=== PATIENT | male | born 1990 | race Caucasian/White ===

== ENCOUNTER 2017-02-28 07:15 | Emergency (ER) ==
[2017-02-28 07:32] VITALS: BP 164/94; TEMP 99; BMI 28.8
[2017-02-28] MEDS ORDERED: CARDENE-NACL 20 MG/200 ML SOLN 200 ML IV ONE (08:00)
[2017-02-28] MEDS ORDERED: CARDENE-NACL 20 MG/200 ML SOLN 20 MG in PREMIX 200ML 0.86% SODIUM CHLORIDE 1 BAG IV SCH (08:00)
[2017-02-28 08:10] LABS: BASOPHILS % (AUTO) 0.4 % (0.0-3.0); EOSINOPHILS % (AUTO) 0.2 % (0.0-7.0); HEMATOCRIT 46.7 % (42.0-52.0); IMMATURE GRANULOCYTE % (AUTO) 0.3 % (0.0-5.0); LYMPHOCYTES # (AUTO) 1.8 K/uL (0.60-3.4); LYMPHOCYTES % (AUTO) 17.3 (10.0-50.0); MEAN CORPUSCULAR HGB CONC 36.4 (31.8-35.4); MEAN CORPUSCULAR VOLUME 85.1 fl (80.0-94.0); MONOCYTES % (AUTO) 10.3 (0-10); NEUTROPHILS # (AUTO) 7.2 K/ul (2.0-6.9); NEUTROPHILS % (AUTO) 71.5; PLATELET COUNT 265 10^3/uL (140-440); RED BLOOD COUNT 5.49 10^6/ul (4.70-6.10); WHITE BLOOD COUNT 10.11 K/ul (4.2-10.2)
--- NOTE | 2017-02-28 08:29 | CT ---
EXAM: CT Abdomen without contrast. CT Pelvis without contrast. HISTORY: Abdominal pain. Drug overdose. COMPARISON: 03/29/2016. TECHNIQUE: Multiple axial images of the abdomen and pelvis were obtained without intravenous contra st. Images were reformatted in the coronal plane. FINDINGS: Please note that evaluation of the abdominal and pelvic structures is limited due to lack of intravenous contrast. The lung bases are clear. No acute osseous abnormality identified. The liver, gallbladder, pancreas, spleen, adrenal glands, and kidneys demonstrate normal contour. N o calcified renal stones or hydronephrosis identified. The bowel is normal in course and caliber without evidence for obstruction or inflammatory process. The appendix is normal. Urinary bladder is unremarkable. No free fluid or free air identified IMPRESSION: No acute abnormality in the abdomen or pelvis.
--- NOTE | 2017-02-28 08:31 | CT ---
EXAM: CT chest without contrast. HISTORY: Chest pain. Drug overdose. COMPARISON: 08/07/2014. TECHNIQUE: Multiple axial images of the chest were obtained without intravenous contrast. Images w ere reformatted in the sagittal and coronal planes. FINDINGS: Evaluation for lymphadenopathy is limited due to lack of intravenous contrast. Residual thymic tissue is present. Heart size is normal. There is no pericardial effusion. No consolidation, pleural effusion or pneumothorax identified. Limited images of the upper abdomen are unremarkable. The osseous structures are within normal limi ts for the patient's age. IMPRESSION: No acute abnormality of the chest.
[2017-02-28 08:50] LABS: PARTIAL THROMBOPLASTIN TIME 22.5 SEC (23.9-40.0); PROTHROMBIN TIME 10.9 SEC (9.3-11.0)
[2017-02-28 09:07] LABS: ALBUMIN 4.7 g/dL (3.4-5.0); ALBUMIN/GLOBULIN RATIO 1.38; ANION GAP 15.5; BILIRUBIN,TOTAL 1.73 mg/dL (0.00-1.20); BUN/CREATININE RATIO 14.16; CALCIUM 9.6 mg/dL (8.2-10.2); CREATININE 1.2 mg/dL (0.60-1.10); POTASSIUM 3.5 mmol/L (3.5-5.1); TOTAL PROTEIN 8.1 g/dL (6.4-8.2); TROPONIN I 0.01 ng/ml (0.0000-0.4000)
[2017-02-28 09:12] LABS: CREATINE KINASE MB 19.5 ng/ml (0.0-3.6)
--- NOTE | 2017-02-28 09:28 | ED.PDOC ---
General ED Provider: Dr. VALENTE CRUZ Chief Complaint: Chest Pain Stated Complaint: chest pain Time Seen by Physician: 07:30 (ptesent selin . pt admitted to meth abuse for the past 3 day) Mode of Arrival: Walk-In Information Source: Patient Exam Limitations: No limitations Nursing and Triage Documentation Reviewed and Agree: Yes Cardiovascular Complaint Exam - Chest Pain Complaint/Exam Onset: Sudden Duration: x 2 hours Symptoms Are: Still present Timing: Intermittent Length of Chest Pain Episodes: 20 min Initial Severity: Moderate Current Severity: Mild Location: Reports: Midsternal Pain Radiates: Reports: None Character: Reports: Tightness Aggravating: Reports: None Alleviating: Reports: Rest, Spontaneous resolution Associated Signs and Symptoms: Reports: Nausea, Cough, Abdominal pain. Denies: Diaphoresis, Vomiting, Fever, Palpitations, Hemoptysis, Back pain, Dizziness, Short of air, Calf pain, Calf swelling Related Surgical History: Reports: None History of Healthcare-Acquired Pneumonia: Reports: No AMI/ACS Risk Factors: Reports: Smoking TAD Risk Factors: Reports: Smoking Pulmonary Embolism Risk Factors: Reports: None Prior Care for this Complaint: No Recent Stress Test: No Recent Echo/LV Function: No JVD Present: No Subcutaneous Emphysema Present: No Diminshed Breath Sounds: No Reproducible Chest Wall Pain: No Bilateral Pulses Present: No If Risk Factors for AMI/ACS Consider: EKG, Cardiac Enzymes Review of Systems - Review Of Systems Constitutional: Reports: Malaise Eyes: Reports: No symptoms Ears, Nose, Mouth, Throat: Reports: No symptoms Respiratory: Reports: Cough Cardiac: Reports: Chest pain GI: Reports: Abdominal pain : Reports: No symptoms Musculoskeletal: Reports: No symptoms Skin: Reports: No symptoms Neurological: Reports: No symptoms Endocrine: Reports: No symptoms Hematologic/Lymphatic: Reports: No symptoms All Other Systems: Reviewed and Negative Past Medical History - Past Medical History Endocrine: Reports: None Cardiovascular: Reports: None Respiratory: Reports: None Hematological: Reports: None Gastrointestinal: Reports: None Genitourinary: Reports: None Neuro/Psych: Reports: Other (history of head injury) Musculoskeletal: Reports: None Cancer: Reports: None - Surgical History General Surgical History: Reports: Unknown (atietn uncooperaticve with history uncooperative with physical eventually allows exam) - Family History Family History: Reports: Unknown - Social History Smoking Status: Current some day smoker Hx Substance Use: Yes Alcohol Screening: None Physical Exam - Physical Exam Appearance: Ill-appearing Ill-appearing: Mild Pain Distress: Mild Eyes: LUIS DANIEL, EOMI, Conjunctiva clear ENT: Ears normal, Nose normal, Oropharynx normal Respiratory: Airway patent, Breath sounds clear, Breath sounds equal, Respirations nonlabored Cardiovascular: RRR, Pulses normal, No rub, No murmur GI/: Soft, Nontender, No masses, Bowel sounds normal, No Organomegaly Musculoskeletal: Normal strength, ROM intact, No edema, No calf tenderness Skin: Warm, Dry, Normal color Neurological: Sensation intact, Motor intact, Reflexes intact, Cranial nerves intact, Alert, Oriented Psychiatric: Affect appropriate, Mood appropriate Interpretation - [place] Rate: Normal Rhythm: Sinus Ectopy: None - EKG Interpretation Rate: Normal Rhythm: Sinus Ectopy: None [place]: NL ST Segment: Normal Physician Notification - Case Discussed Physician Notified: natalee Time of Notification: 09:49 (accepted pt for transfer ) Critical Care Note - Critical Care Note Total Time (mins): 0 Course - Course Hematology/Chemistry: 02/28/17 08:05 02/28/17 08:05 Orders, Labs, Meds: Lab Review 02/28/17 08:05 WBC 10.11 RBC 5.49 Hgb 17.0 Hct 46.7 MCV 85.1 MCH 31.0 MCHC 36.4 H RDW Coeff of Gage 12.1 Plt Count 265 Immature Gran % (Auto) 0.3 Neut % (Auto) 71.5 Lymph % (Auto) 17.3 [place] % (Auto) 10.3 H Eos % (Auto) 0.2 Baso % (Auto) 0.4 Immature Gran # (Auto) 0.0 Neut # 7.2 H Lymph # 1.8 [place] # 1.0 Eos # 0.0 Baso # 0.0 PT 10.9 INR 1.06 APTT 22.5 L Sodium 139 Potassium 3.5 Chloride 104 Carbon Dioxide 23 Anion Gap 15.5 BUN 17 Creatinine 1.20 H Estimated GFR (MDRD) 73.00 BUN/Creatinine Ratio 14.16 Glucose 101 H Calcium 9.6 Total Bilirubin 1.73 H AST 57 H ALT 44 Alkaline Phosphatase 81 Total Creatine Kinase 1865 CK-MB (CK-2) 19.5 H* CK-MB (CK-2) % 1.73898 Troponin I 0.0100 Total Protein 8.1 Albumin 4.7 Globulin 3.4 Albumin/Globulin Ratio 1.38 Orders Category Date Time Status EKG-(ED ONLY) Stat CARDIO 02/28/17 08:27 Completed EKG-(ED ONLY) Stat CARDIO 02/28/17 09:42 Completed TRANSFER TO OUTSIDE FACILITY .TO [facility] ( CARE 02/28/17 09:31 Active NOMAN DUBOSE) WRITE TRANSFER/SBAR NOTE ONCE CARE 02/28/17 09:31 Active DISCHARGE ASSESSMENT ONCE DISCHARGE 02/28/17 09:31 Active WRITE DISCHARGE NOTE ONCE DISCHARGE 02/28/17 09:31 Active ED IV/MEDIPORT/POWERPORT .ONCE EMERGENCY 02/28/17 07:53 Active CBC W/ AUTO DIFF Stat LAB 02/28/17 08:05 Completed COMPREHENSIVE METABOLIC PANEL Stat LAB 02/28/17 08:05 Completed CREATINE KINASE Stat LAB 02/28/17 08:05 Completed DRUG SCREEN (RAPID FOR ED) [DRUG SCREEN, URINE, RAPID] LAB 02/28/17 07:54 Uncollected Stat PARTIAL THROMBOPLASTIN TIME Stat LAB 02/28/17 08:05 Completed PT WITH INR Stat LAB 02/28/17 08:05 Completed TROPONIN I Stat LAB 02/28/17 08:05 Completed 0.9 % Sodium Chloride [Premix 200Ml 0.86% Sodium MEDS 02/28/17 08:00 Active Chloride] 1 bag Nicardipine in NaCl, Iso-Osm [Cardene-NaCl 20 mg/200 ml Soln] 20 mg IV 5 mg/hr 0.9 % Sodium Chloride [Saline Flush] MEDS 02/28/17 07:53 Active 1 syr IVF PRN PRN Nicardipine in NaCl, Iso-Osm [Cardene-NaCl 20 mg/200 ml MEDS 02/28/17 08:00 Discontinued Soln] 200 ml IV .STK-MED CT ABDOMEN/PELVIS WO CONTRAST Stat RADS 02/28/17 07:[address] CHEST W/O CONTRAST Stat RADS 02/28/17 07:53 Completed Medications Generic Name Dose Route Start Last Admin Trade Name Freq PRN Reason Stop Dose Admin NICARDIPINE IN NACL, ISO-OSM 200 mls @ 50 mls/hr 02/28/17 08:00 02/28/17 08: 20 20 mg/ Sodium Chloride IV 5 mg/hr .Q4H LEOPOLDO 50 mls/hr Protocol Administration 5 MG/HR Sodium Chloride 1 syr 02/28/17 07:53 Saline Flush IVF PRN PRN To flush IV Vital Signs: Temp Pulse Resp BP Pulse Ox 02/28/17 07:28 99.0 F 90 16 164/94 H 99 JACKSON Risk Score JACKSON Risk Score: Risk Score Odds of by 30D 0 0.1 (0.1-0.2) 1 0.3 (0.2-0.3) 2 0.4 (0.3-0.5) 3 0.7 (0.6-0.9) 4 1.2 (1.0-1.5) 5 2.2 (1.9-2.6) 6 3.0 (2.5-3.6) 7 4.8 (3.8-6.1) Departure - Departure Time of Disposition: 09:30 Disposition: TSF SHORT-TRM HOSP Discharge Problem: Chest pain Instructions: Chest Pain (ED), Angina (ED) Condition: Good Pt referred to PMD for follow-up: Yes Allergies/Adverse Reactions: Allergies No Known Allergies Allergy (Verified 02/28/17 07:32) Home Medications: Ambulatory Orders 1 [No Reported Medications] 04/10/15 Disposition Discussed With: Patient
== END 2017-02-28 11:02 | disposition short-term general hospital (02) ==
LOC: ED 07:15
DX: R07.9 Chest pain, unspecified (principal); F15.10 Other stimulant abuse, uncomplicated; R11.0 Nausea; R05 Cough; R10.9 Unspecified abdominal pain; F17.210 Nicotine dependence, cigarettes, uncomplicated
CPT/HCPCS: 36415; 80053; 82550; 82553; 84484; 85025; 85610; 85730; 93005; 93010; 96365; 99285

== ENCOUNTER 2017-02-28 11:00 | Outpatient (CLI) ==
[2017-03-01 05:30] VITALS: BMI 28.8
== END 2017-02-28 11:01 ==
LOC: AMBL 11:00
PROVIDERS: ATTEND Internal Medicine
DX: R07.9 Chest pain, unspecified (principal); F15.10 Other stimulant abuse, uncomplicated

== ENCOUNTER 2017-03-01 05:18 | Outpatient (CLI) ==
[2017-03-01 05:30] VITALS: BMI 28.8
== END 2017-03-01 05:19 ==
LOC: AMBL 05:18
PROVIDERS: ATTEND Family Medicine
DX: R44.3 Hallucinations, unspecified (principal); F10.10 Alcohol abuse, uncomplicated; F15.10 Other stimulant abuse, uncomplicated

== ENCOUNTER 2017-03-01 05:30 | Emergency (ER) ==
[2017-03-01 05:30] VITALS: BMI 28.8
[2017-03-01] MEDS ORDERED: SODIUM CHLORIDE 1,000 ML IV STA (05:39)
[2017-03-01 05:48] VITALS: BP 130/77; TEMP 98.8
--- NOTE | 2017-03-01 05:58 | ED.PDOC ---
General ED Provider: Dr. ARLETTE GARSIA-ER Chief Complaint: Alcohol Intoxication Stated Complaint: devora been drinking Time Seen by Physician: 05:35 Mode of Arrival: Walk-In Information Source: Patient, EMT, Police Exam Limitations: No limitations Nursing and Triage Documentation Reviewed and Agree: Yes Neurological Complaint Exam - Altered Mental Status Complaint/Exam Current Mental Status: Confusion Onset: Gradual Symptoms Are: Still present Timing: Intermittent Initial Severity: Mild Current Severity: Mild Eye Deviation Present: No Character: Denies: Confusion, Agitation, Responsiveness, Lethargy Aggravating: Reports: Ingestion Alleviating: Reports: None Associated Signs and Symptoms: Denies: Dizziness, Weakness, Headache, Fever, Illness, Nuchal rigidity, Seizure, Nausea, Vomiting, Recently depressed, Trauma Related History: Reports: Similar episode Cardiac Risk Factors: Reports: None CVA Risk Factors: Reports: None Related Surgical History: Reports: None Carotid Bruit Present: No Glascow Coma Scale (see protocol): 15 Nystagmus Present: No Gag Reflex Present: Yes Meningeal Signs Positive: No Focal Weakness: Present: None Focal Sensory Loss: Present: None Gait: Normal [id number]: Normal Findings Romberg Test Positive: No Babinski Sign: Negative Right, Negative Left Heel to Toe Normal: Yes Signs of Injury: Present: Normal findings Thrombolytics Considered: No Differential Diagnoses: Intoxication, Metabolic Disorder, Other Review of Systems - Review Of Systems Constitutional: Reports: No symptoms Eyes: Reports: No symptoms Ears, Nose, Mouth, Throat: Reports: No symptoms Respiratory: Reports: No symptoms Cardiac: Reports: No symptoms GI: Reports: No symptoms : Reports: No symptoms Musculoskeletal: Reports: No symptoms Skin: Reports: No symptoms Neurological: Reports: Cognitive dysfunction Endocrine: Reports: No symptoms Hematologic/Lymphatic: Reports: No symptoms All Other Systems: Reviewed and Negative Past Medical History - Past Medical History Endocrine: Reports: None Cardiovascular: Reports: None Respiratory: Reports: None Hematological: Reports: None Gastrointestinal: Reports: None Genitourinary: Reports: None Neuro/Psych: Reports: Other (history of head injury) Musculoskeletal: Reports: None Cancer: Reports: None - Surgical History General Surgical History: Reports: Unknown (atietn uncooperaticve with history uncooperative with physical eventually allows exam) - Family History Family History: Reports: Unknown - Social History Smoking Status: Current some day smoker Hx Substance Use: Yes (meth) Alcohol Screening: Heavy Lives: With family - Immunizations Tetanus Shot up to Date: No Physical Exam - Physical Exam Appearance: Well-appearing, No pain distress, Well-nourished Eyes: LUIS DANIEL, EOMI, Conjunctiva clear ENT: Ears normal, Nose normal, Oropharynx normal Neck: Supple Respiratory: Airway patent, Breath sounds clear, Breath sounds equal, Respirations nonlabored Cardiovascular: RRR GI/: Soft, Nontender, No masses, Bowel sounds normal, No Organomegaly Musculoskeletal: Normal strength, ROM intact, No edema, No calf tenderness Skin: Warm, Dry, Normal color Neurological: Disoriented Psychiatric: Affect appropriate, Mood appropriate Interpretation - Radiology Interpretation Radiology Interpretation By: Radiologist Radiology Results: Negative Exam Interpreted: CT Scan Re-Evaluation - Re-Evaluation Time of Re-Evaluation: 07:00 Status: Improved (he is now alert and oriented x 3--he is refusing labs and wanting to leave ama) Vital Signs Stable: Yes Pain Level: 0 Appearance: NAD Lungs: Clear Skin: Warm and Dry Neuro: Alert and Oriented X3 CV: RRR Physician Notification - Case Discussed Physician Notified: dr crawley Time of Notification: 07:00 Critical Care Note - Critical Care Note Total Time (mins): 0 Course - Course Hematology/Chemistry: 03/01/17 06:25 Orders, Labs, Meds: Lab Review 03/01/17 03/01/17 05:38 06:25 WBC 11.84 H RBC 5.62 Hgb 17.2 Hct 49.2 MCV 87.5 MCH 30.6 MCHC 35.0 RDW Coeff of Gage 12.1 Plt Count 265 Immature Gran % (Auto) 0.4 Neut % (Auto) 80.9 Lymph % (Auto) 10.1 [place] % (Auto) 8.2 Eos % (Auto) 0.1 Baso % (Auto) 0.3 Immature Gran # (Auto) 0.1 Neut # 9.6 H Lymph # 1.2 [place] # 1.0 Eos # 0.0 Baso # 0.0 Puncture Site Lb O2 Saturation 95.0 ABG pH 7.376 ABG pCO2 34.3 L ABG pO2 77.0 L ABG HCO3 20.1 L ABG Total CO2 21 L ABG Base Excess -5 L Ben Test + FiO2 % 21.0 Orders Category Date Time Status ABG DRAW REQUEST Stat CARDIO 03/01/17 05:38 Completed EKG-(ED ONLY) Stat CARDIO 03/01/17 05:38 Completed Building Maintenance Superintendent [ED [employer] LEADER APPLIED] .ONCE EMERGENCY 03/01/17 05:39 Active ED IV/MEDIPORT/POWERPORT .ONCE EMERGENCY 03/01/17 05:39 Active ABG Stat LAB 03/01/17 05:38 Completed ACETAMINOPHEN Stat LAB 03/01/17 05:38 Ordered BLOOD ALCOHOL Stat LAB 03/01/17 05:38 Ordered CBC W/ AUTO DIFF Stat LAB 03/01/17 06:25 Completed COMPREHENSIVE METABOLIC PANEL Stat LAB 03/01/17 05:38 Ordered SALICYLATE Stat LAB 03/01/17 05:38 Ordered URINALYSIS C & S IF INDICATED Stat LAB 03/01/17 05:38 Uncollected URINE DRUG SCREEN (RAPID FOR ED) [DRUG SCREEN, URINE, LAB 03/01/17 05:38 Uncollected RAPID] Stat 0.9 % Sodium Chloride [Saline Flush] MEDS 03/01/17 05:39 Ordered 1 syr IVF PRN PRN Sodium Chloride 0.9% [Sodium Chloride] 1,000 ml MEDS 03/01/17 05:39 Active IV 100 mls/hr CT HEAD W/O CONTRAST Stat RADS 03/01/17 05:39 Completed Medications Generic Name Dose Route Start Last Admin Trade Name Freq PRN Reason Stop Dose Admin Sodium Chloride 1,000 mls @ 100 mls/hr 03/01/17 05:39 03/01/17 06:14 Sodium Chloride IV 03/01/17 15:38 100 mls/hr .Q10H STA Administration Sodium Chloride 1 syr 03/01/17 05:39 03/01/17 06:14 Saline Flush IVF 1 syr PRN PRN Administration To flush IV we wanted to keep him for further testing but he refuses---he understands fully if he leaves he will be at risk for further harm and even but wishes to leave --at this time he is alert and oriented and able to make decisions for himself Vital Signs: Temp Pulse Resp BP Pulse Ox 03/01/17 05:33 98.8 F 139 H 22 130/77 95 Departure - Departure Time of Disposition: 06:55 Disposition: AMA Discharge Problem: Alcohol intoxication Instructions: Alcohol Intoxication (ED), Abuse of Alcohol (ED), Polysubstance Abuse (ED), Hallucinations (ED) Condition: Stable Pt referred to PMD for follow-up: Yes Additional Instructions: YOU HAVE OPTED TO REFUSE LAB WORK AND SIGN OUT AMA. IF YOU HAVE ANY CHANGES RETURN TO ER Allergies/Adverse Reactions: Allergies No Known Allergies Allergy (Verified 03/01/17 05:48) Home Medications: Ambulatory Orders 1 [No Reported Medications] 04/10/15 Disposition Discussed With: Patient
--- NOTE | 2017-03-01 06:14 | CT ---
EXAM: CT scan brain without contrast HISTORY: Mental status change COMPARISON: CT scan brain 04/10/2015 FINDINGS: Contiguous axial images were obtained from the skull base to the convexities without cont rast utilizing 5-mm collimation. Sagittal and coronal reconstructions were imaged and reviewed. The ventricles and CSF spaces are within normal limits. There are no acute intracranial findings. The visualized paranasal sinuses and mastoid air cells are clear.. There is deviation of the nasal sept um to the right of midline. IMPRESSION: No acute intracranial findings
[2017-03-01 06:30] LABS: ABG BASE EXCESS -5 (-2.0-2.0); ABG HCO3 20.1 (22.0-26.0); ABG PCO2 34.3 mmHg (35-45); ABG TCO2 21 (22.0-28.0)
[2017-03-01 06:31] LABS: ABG PH 7.376 (7.35-7.45)
[2017-03-01 06:37] LABS: BASOPHILS % (AUTO) 0.3 % (0.0-3.0); EOSINOPHILS % (AUTO) 0.1 % (0.0-7.0); HEMATOCRIT 49.2 % (42.0-52.0); HEMOGLOBIN 17.2 g/dl (14.0-18.0); IMMATURE GRANULOCYTE % (AUTO) 0.4 % (0.0-5.0); LYMPHOCYTES # (AUTO) 1.2 K/uL (0.60-3.4); LYMPHOCYTES % (AUTO) 10.1 (10.0-50.0); MEAN CORPUSCULAR HEMOGLOBIN 30.6 pg (27.0-31.0); MEAN CORPUSCULAR VOLUME 87.5 fl (80.0-94.0); MONOCYTES % (AUTO) 8.2 (0-10); NEUTROPHILS # (AUTO) 9.6 K/ul (2.0-6.9); NEUTROPHILS % (AUTO) 80.9; PLATELET COUNT 265 10^3/uL (140-440); RED BLOOD COUNT 5.62 10^6/ul (4.70-6.10); WHITE BLOOD COUNT 11.84 K/ul (4.2-10.2)
== END 2017-03-01 07:00 | disposition left against medical advice (07) ==
LOC: ED 05:30
DX: F10.129 Alcohol abuse with intoxication, unspecified (principal); F17.210 Nicotine dependence, cigarettes, uncomplicated; F19.10 Other psychoactive substance abuse, uncomplicated
CPT/HCPCS: 82803; 85025; 93005; 93010; 96360; 99283

== ENCOUNTER 2017-03-20 02:12 | Emergency (ER) ==
[2017-03-20 02:13] VITALS: BMI 28.8
[2017-03-20] MEDS ORDERED: ATIVAN IM STA (02:25)
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
[2017-03-20 02:38] LABS: BASOPHILS # (AUTO) 0.1 K/uL (0-0.2); BASOPHILS % (AUTO) 0.3 % (0.0-3.0); HEMATOCRIT 50.4 % (42.0-52.0); HEMOGLOBIN 17.7 g/dl (14.0-18.0); IMMATURE GRANULOCYTE % (AUTO) 0.3 % (0.0-5.0); LYMPHOCYTES # (AUTO) 1.5 K/uL (0.60-3.4); LYMPHOCYTES % (AUTO) 8.3 (10.0-50.0); MEAN CORPUSCULAR HEMOGLOBIN 31.3 pg (27.0-31.0); MEAN CORPUSCULAR HGB CONC 35.1 (31.8-35.4); MONOCYTES # (AUTO) 1.6 K/uL (0.4-2.0); MONOCYTES % (AUTO) 8.7 (0-10); NEUTROPHILS # (AUTO) 15.2 K/ul (2.0-6.9); NEUTROPHILS % (AUTO) 82.4; PLATELET COUNT 355 10^3/uL (140-440); RED BLOOD COUNT 5.66 10^6/ul (4.70-6.10); WHITE BLOOD COUNT 18.48 K/ul (4.2-10.2)
[2017-03-20] MEDS ORDERED: HALDOL IM STA ×2 (02:39→15:16)
[2017-03-20] MEDS ORDERED: SODIUM CHLORIDE 1,000 ML IV STA (02:39)
[2017-03-20 02:57] LABS: ALANINE AMINOTRANSFERASE 92 U/L (12-78); ALBUMIN 4.7 g/dL (3.4-5.0); ALBUMIN/GLOBULIN RATIO 1.21; ALKALINE PHOSPHATASE 94 U/L (50-136); ANION GAP 22.8; ASPARTATE AMINO TRANSFERASE 55 U/L (15-37); BILIRUBIN,TOTAL 1.07 mg/dL (0.00-1.20); BLOOD UREA NITROGEN 18 mg/dL (7-18); BUN/CREATININE RATIO 10.16; CALCIUM 10.3 mg/dL (8.2-10.2); CARBON DIOXIDE 17 mmol/L (21-32); CHLORIDE 102 mmol/L (98-107); CREATININE 1.77 mg/dL (0.60-1.10); GLUCOSE 99 mg/dL (70-100); POTASSIUM 3.8 mmol/L (3.5-5.1); SODIUM 138 mmol/L (136-145); TOTAL PROTEIN 8.6 g/dL (6.4-8.2)
[2017-03-20 06:48] LABS: BILIRUBIN,URINE 1+ (NEGATIVE); KETONES,URINE 2+ (NEGATIVE); LEUKOCYTE ESTERASE ,URINE Negative (NEGATIVE); NITRITE,URINE Negative (NEGATIVE); PROTEIN,URINE 1+ (NEGATIVE); URINE, BLOOD Negative (NEGATIVE)
[2017-03-20 06:51] LABS: ADD URINE MICROSCOPIC YES; BACTERIA,URINE TRACE (NOT PRESENT)
[2017-03-20 07:03] LABS: COCAIN SCREEN,URINE NEGATIVE (NEGATIVE)
[2017-03-20 07:41] LABS: ACETAMINOPHEN < 3 ug/ml (10-30); SALICYLATE < 5.0 mg/dL (2.8-20.0)
[2017-03-20 09:35] VITALS: BP 126/71; TEMP 98.8
[2017-03-20] MEDS ORDERED: ATIVAN IVP STA (15:16)
== END 2017-03-20 20:00 | disposition home or self-care (01) ==
LOC: ED 02:12
DX: R41.0 Disorientation, unspecified (principal); F19.10 Other psychoactive substance abuse, uncomplicated; F17.210 Nicotine dependence, cigarettes, uncomplicated; Z91.14 Patient's other noncompliance with medication regimen
CPT/HCPCS: 36415; 80053; 80306; 80307; 81001; 84443; 85025; 93005; 93010; 96361; 96372; 96374; 99284

== ENCOUNTER 2017-06-16 16:43 | Outpatient (CLI) ==
[2017-06-16 17:32] LABS: BILIRUBIN,URINE Negative (NEGATIVE); KETONES,URINE Trace (NEGATIVE); LEUKOCYTE ESTERASE ,URINE Negative (NEGATIVE); NITRITE,URINE Negative (NEGATIVE); PROTEIN,URINE Negative (NEGATIVE); URINE, BLOOD Negative (NEGATIVE)
[2017-06-16 17:52] LABS: ADD URINE MICROSCOPIC NO
== END 2017-06-16 16:44 | disposition home or self-care (01) ==
LOC: LAB 16:43
PROVIDERS: ATTEND Nurse Practitioner Family
DX: N50.819 Testicular pain, unspecified (principal); Z20.2 Contact with and (suspected) exposure to infections with a predominantly sexual mode of transmission
CPT/HCPCS: 81001; 87800

== ENCOUNTER 2017-06-25 16:05 | Emergency (ER) ==
[2017-06-25 16:18] VITALS: BP 150/92; TEMP 98.4; BMI 26.6
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
== END 2017-06-25 17:09 | disposition home or self-care (01) ==
LOC: ED 16:05
DX: S60.222A Contusion of left hand, initial encounter (principal); S19.9XXA Unspecified injury of neck, initial encounter; W22.8XXA Striking against or struck by other objects, initial encounter; Y04.8XXA Assault by other bodily force, initial encounter; F17.210 Nicotine dependence, cigarettes, uncomplicated
CPT/HCPCS: 99283

== ENCOUNTER 2017-07-01 13:12 | Outpatient (CLI) | payer OTHER ==
--- NOTE | 2017-07-01 13:55 | US ---
EXAM: Abdominal ultrasound limited HISTORY: Right upper quadrant pain COMPARISON: CT abdomen pelvis, 02 2711/29/2016 and multiple priors TECHNIQUE: Sonographic and limited Doppler evaluation of the right upper quadrant was performed. FINDINGS: The liver is normal in echogenicity and measures 12.0 cm. The portal vein is patent. Th e gallbladder demonstrates no stones or sludge. The gallbladder wall measures 0.2 cm in thickness w ith no pericholecystic fluid. Common bile duct is unremarkable and measures 0.3 cm in diameter. The pancreas is unremarkable in appearance. Right kidney measures 10.7 x 4.7 x 3.9 cm with cortical thi ckness of 1.7 cm. There is an anechoic cyst measuring 1.1 x 1.1 x 0.8 cm. IMPRESSION: 1. No acute sonographic abnormality to account for patient's symptoms. 2. Anechoic right renal cyst.
[2017-07-01 14:10] LABS: ALBUMIN/GLOBULIN RATIO 1.48; BILIRUBIN,TOTAL 0.46 mg/dL (0.00-1.20); BUN/CREATININE RATIO 7.21; CALCIUM 9.5 mg/dL (8.2-10.2); CREATININE 0.97 mg/dL (0.60-1.10); TOTAL PROTEIN 6.7 g/dL (6.4-8.2)
== END 2017-07-01 13:13 | disposition home or self-care (01) ==
LOC: RAD 13:12
PROVIDERS: ATTEND Nurse Practitioner Family
DX: R74.8 Abnormal levels of other serum enzymes (principal); R10.84 Generalized abdominal pain
CPT/HCPCS: 36415; 80053; 80074; 82150; 83690

== ENCOUNTER 2018-02-28 04:47 | Emergency (ER) | payer OTHER ==
[2018-02-28 05:00] VITALS: BMI 23.1
[2018-02-28] MEDS ORDERED: GEODON IM STA (05:23)
--- NOTE | 2018-02-28 05:28 | ED.PDOC ---
General Stated Complaint: Patient been brought by police as he is been acting strange, He is on the bed, talking randomly, says He wised he dont have to get up from sleep.not co operative for the exam Time Seen by Physician: 05:28 Mode of Arrival: Walk-In Information Source: Patient, Police Nursing and Triage Documentation Reviewed and Agree: Yes Reviewed sepsis parameters & appropriate labs ordered?: No System Inflammatory Response Syndrome: Not Applicable <MONET SCHWARZ - Last Filed: 02/28/18 05:22> <ARLETTE DUQUE - Last Filed: 02/28/18 19:52> <ARLETTE WALKER - Last Filed: 03/01/18 08:32> ED Provider: Dr. ARLETTE GARSIAROSANNE Chief Complaint: Behavioral Complaint Primary Care Provider: MONET SCHWARZ-[facility] Sepsis Protocol: For patient's 13 years and over: Temp is 96.8 and below OR 101 and greater Pulse >90 BPM Resp >20/minute Acutely Altered Mental Status Are patient's symptoms suggestive of a new infection, such as: -Pneumonia -Skin, Soft Tissue -Endocarditis -UTI -Bone, Joint Infection -Implantable Device -Acute Abdominal Infection -Wound Infection -Meningitis -Blood Stream Catheter Infection -Unknown Psychological Complaint Exam - Psychiatric Complaint/Exam Patient Complains Of: Present: Other (change in mental status) Symptoms Are: Still present Timing: Constant Episodes Lasting: Hours Initial Severity: Severe Current Severity: Severe Character: Present: Depressed, Anxious, Angry, Frustrated Aggravating: Reports: Recent stress, Alcohol use, Drug use Associated Signs And Symptoms: Reports: Hostile, Confused Related History: Reports: Recent stressors, Drug ingestion Completed Suicide Risk Factors: None Patient Accompanied By: Police Patient In Custody Of Police: No Social Withdrawal Present: Yes Social Isolation Present: Yes Related Surgical History: Reports: None Patient Uncooperative For Exam: Yes Mood: Present: Paranoid, Manic, Agitated, Anxious Appearance: Present: Unkempt Thought Process: Present: Illogical, Flight of ideas Insight: Present: Poor Memory: Impaired Judgement: Impaired Danger To Others: Yes Patient Medically Stable For: Psych evaluation Differential Diagnoses: Other (ams, drug use) <MONET SCHWARZ - Last Filed: 02/28/18 05:22> Review of Systems - Review Of Systems Constitutional: Reports: No symptoms Eyes: Reports: No symptoms Ears, Nose, Mouth, Throat: Reports: No symptoms Respiratory: Reports: No symptoms Cardiac: Reports: No symptoms GI: Reports: No symptoms : Reports: No symptoms Musculoskeletal: Reports: No symptoms Skin: Reports: No symptoms Neurological: Reports: Anxiety Endocrine: Reports: No symptoms Hematologic/Lymphatic: Reports: No symptoms All Other Systems: Reviewed and Negative <MONET SCHWARZ - Last Filed: 02/28/18 05:22> Past Medical History - Past Medical History Previously Healthy: No Endocrine: Reports: None Cardiovascular: Reports: None Respiratory: Reports: None Hematological: Reports: None Gastrointestinal: Reports: None Genitourinary: Reports: None Neuro/Psych: Reports: Depression, Schizophrenia, Other (history of head injury) Musculoskeletal: Reports: None Cancer: Reports: None - Surgical History General Surgical History: Reports: Unknown (atietn uncooperaticve with history uncooperative with physical eventually allows exam) - Family History Family History: Reports: Unknown - Social History Smoking Status: Current some day smoker Hx Substance Use: Yes (meth) Alcohol Screening: Heavy - Immunizations Tetanus Shot up to Date: No (unknown) <NICOLEMONET LIM - Last Filed: 02/28/18 05:22> Physical Exam - Physical Exam Appearance: Ill-appearing Eyes: LUIS DANIEL, EOMI, Conjunctiva clear ENT: Ears normal, Nose normal, Oropharynx normal Respiratory: Airway patent, Breath sounds clear, Breath sounds equal, Respirations nonlabored Cardiovascular: RRR, Pulses normal, No rub, No murmur GI/: Soft, Nontender, No masses, Bowel sounds normal, No Organomegaly Musculoskeletal: ROM intact, No edema, No calf tenderness, Limited ROM (rt hand) Skin: Warm, Dry, Normal color Neurological: Sensation intact, Motor intact, Reflexes intact, Cranial nerves intact, Alert, Disoriented Psychiatric: Anxious, Depressed <MONET SCHWARZ - Last Filed: 02/28/18 05:22> Re-Evaluation - Re-Evaluation Time of Re-Evaluation: 08:29 Status: Improved (he is alert and oriented now--denies being suicidal or homocidal--only complaining of pain in the hand--hand warm to tough--cap refill normal--no evidence of compartment syndrome) Vital Signs Stable: Yes Pain Level: 2 Appearance: NAD Lungs: Clear Skin: Warm and Dry Neuro: Alert and Oriented X3 CV: RRR <ARLETTE WALKER - Last Filed: 03/01/18 08:32> Critical Care Note - Critical Care Note Total Time (mins): 30 <MONET SCHWARZ - Last Filed: 02/28/18 05:22> - Critical Care Note Total Time (mins): 0 <ADYNAARLETTE - Last Filed: 03/01/18 08:32> Course - Course Hematology/Chemistry: 02/28/18 06:11 02/28/18 06:11 <DUNIAARLETTE - Last Filed: 02/28/18 19:52> - Course Hematology/Chemistry: 02/28/18 06:11 03/01/18 00:45 <AARONARLETTE - Last Filed: 03/01/18 08:32> - Course Orders, Labs, Meds: Lab Review 02/28/18 02/28/18 02/28/18 06:11 06:11 08:52 WBC 7.14 RBC 5.00 Hgb 15.0 Hct 42.3 MCV 84.6 MCH 30.0 MCHC 35.5 H RDW Coeff of Gage 11.9 Plt Count 235 Immature Gran % (Auto) 0.1 Neut % (Auto) 64.0 Lymph % (Auto) 28.4 Traverse % (Auto) 6.6 Eos % (Auto) 0.6 Baso % (Auto) 0.3 Immature Gran # (Auto) 0.0 Neut # (Auto) 4.6 Lymph # (Auto) 2.0 Traverse # (Auto) 0.5 Eos # (Auto) 0.0 Baso # (Auto) 0.0 Sodium 143 Potassium 3.1 L Chloride 109 H Carbon Dioxide 21 Anion Gap 16.1 BUN 10 Creatinine 1.06 Estimated GFR (MDRD) 84.00 BUN/Creatinine Ratio 9.43 Glucose 104 H Calcium 8.8 Total Bilirubin 0.5 AST 22 ALT 19 Alkaline Phosphatase 63 Total Protein 6.9 Albumin 3.9 Globulin 3.0 Albumin/Globulin Ratio 1.30 TSH 0.763 Urine Color Urine Clarity Urine pH Ur Specific [place] Urine Protein Urine Glucose (UA) Urine Ketones Urine Blood Urine Nitrite Urine Bilirubin Urine Urobilinogen Ur Leukocyte Esterase Urine Microscopic RBC Urine Microscopic WBC Ur Squamous Epith Cells Salicylate Level mg/dL < 5.0 Urine Opiates Screen Negative Ur Oxycodone Screen Negative Urine Methadone Screen Negative Ur Propoxyphene Screen Negative Acetaminophen < 3 L Ur Barbiturates Screen Negative U Tricyclic Antidepress Negative Ur Phencyclidine Scrn Negative Ur Amphetamine Screen Negative U Methamphetamines Scrn Negative U Benzodiazepines Scrn Negative Urine Cocaine Screen Negative U Cannabinoids Screen Negative Plasma/Serum Alcohol 176.1 H 02/28/18 02/28/18 02/28/18 08:52 09:48 13:45 WBC RBC Hgb Hct MCV MCH MCHC RDW Coeff of Gage Plt Count Immature Gran % (Auto) Neut % (Auto) Lymph % (Auto) Traverse % (Auto) Eos % (Auto) Baso % (Auto) Immature Gran # (Auto) Neut # (Auto) Lymph # (Auto) Traverse # (Auto) Eos # (Auto) Baso # (Auto) Sodium Potassium Chloride Carbon Dioxide Anion Gap BUN Creatinine Estimated GFR (MDRD) BUN/Creatinine Ratio Glucose Calcium Total Bilirubin AST ALT Alkaline Phosphatase Total Protein Albumin Globulin Albumin/Globulin Ratio TSH Urine Color Yellow Urine Clarity Clear Urine pH 5.0 Ur Specific [place] 1.010 Urine Protein Negative Urine Glucose (UA) Negative Urine Ketones Negative Urine Blood 2+ Urine Nitrite Negative Urine Bilirubin Negative Urine Urobilinogen 0.2 Ur Leukocyte Esterase Negative Urine Microscopic RBC 2-5 Urine Microscopic WBC 2-5 Ur Squamous Epith Cells Not present Salicylate Level mg/dL Urine Opiates Screen Ur Oxycodone Screen Urine Methadone Screen Ur Propoxyphene Screen Acetaminophen Ur Barbiturates Screen U Tricyclic Antidepress Ur Phencyclidine Scrn Ur Amphetamine Screen U Methamphetamines Scrn U Benzodiazepines Scrn Urine Cocaine Screen U Cannabinoids Screen Plasma/Serum Alcohol 123.5 H 77.0 03/01/18 00:45 WBC RBC Hgb Hct MCV MCH MCHC RDW Coeff of Gage Plt Count Immature Gran % (Auto) Neut % (Auto) Lymph % (Auto) Traverse % (Auto) Eos % (Auto) Baso % (Auto) Immature Gran # (Auto) Neut # (Auto) Lymph # (Auto) [place]verse # (Auto) Eos # (Auto) Baso # (Auto) Sodium Potassium 3.7 Chloride Carbon Dioxide Anion Gap BUN Creatinine Estimated GFR (MDRD) BUN/Creatinine Ratio Glucose Calcium Total Bilirubin AST ALT Alkaline Phosphatase Total Protein Albumin Globulin Albumin/Globulin Ratio TSH Urine Color Urine Clarity Urine pH Ur Specific [place] Urine Protein Urine Glucose (UA) Urine Ketones Urine Blood Urine Nitrite Urine Bilirubin Urine Urobilinogen Ur Leukocyte Esterase Urine Microscopic RBC Urine Microscopic WBC Ur Squamous Epith Cells Salicylate Level mg/dL Urine Opiates Screen Ur Oxycodone Screen Urine Methadone Screen Ur Propoxyphene Screen Acetaminophen Ur Barbiturates Screen U Tricyclic Antidepress Ur Phencyclidine Scrn Ur Amphetamine Screen U Methamphetamines Scrn U Benzodiazepines Scrn Urine Cocaine Screen U Cannabinoids Screen Plasma/Serum Alcohol Orders Category Date Time Status EKG-(ED ONLY) Stat CARDIO 03/01/18 00:37 Completed ED CATHETER INSERTION AND CARE .ONCE EMERGENCY 02/28/18 06:20 Active ED IV/MEDIPORT/POWERPORT .ONCE EMERGENCY 02/28/18 06:42 Active Restrain [ED RESTRAINTS] .ONCE EMERGENCY 02/28/18 06:20 Active ACETAMINOPHEN Stat LAB 02/28/18 06:11 Completed ALCOHOL LEVEL [BLOOD ALCOHOL] Stat LAB 02/28/18 09:48 Completed ALCOHOL LEVEL [BLOOD ALCOHOL] Stat LAB 02/28/18 13:45 Completed BLOOD ALCOHOL Stat LAB 02/28/18 06:11 Completed CBC W/ AUTO DIFF Stat LAB 02/28/18 06:11 Completed COMPREHENSIVE METABOLIC PANEL Stat LAB 02/28/18 06:11 Completed POTASSIUM Stat LAB 03/01/18 00:45 Completed SALICYLATE Stat LAB 02/28/18 06:11 Completed THYROID STIMULATING HORMONE Stat LAB 02/28/18 06:11 Completed URINALYSIS C & S IF INDICATED Stat LAB 02/28/18 08:52 Completed URINE DRUG SCREEN (RAPID FOR ED) [DRUG SCREEN, URINE, LAB 02/28/18 08:52 Completed RAPID] Stat 0.9 % Sodium Chloride [Saline Flush] MEDS 02/28/18 06:42 Active 1 syr IVF PRN PRN Lidocaine HCl [Uro-Jet] MEDS 02/28/18 06:20 Discontinued 10 ml [id number] ONCE STA Potassium Chloride [K-Dur] MEDS 02/28/18 22:47 Discontinued 40 meq PO ONCE STA Sodium Chloride 0.9% [Sodium Chloride] 1,000 ml MEDS 02/28/18 06:42 Discontinued IV 100 mls/hr Ziprasidone Mesylate [Geodon] MEDS 02/28/18 05:23 Discontinued 10 mg IM ONCE STA CT HEAD W/O CONTRAST Stat RADS 04/21/18 05:36 Completed HAND, RIGHT 2 VIEWS Stat RADS 02/28/18 05:36 Completed Medications Generic Name Dose Route Start Last Admin Trade Name Freq PRN Reason Stop Dose Admin Sodium Chloride 1 syr 02/28/18 06:42 Saline Flush IVF PRN PRN To flush IV Discontinued Medications Generic Name Dose Route Start Last Admin Trade Name Freq PRN Reason Stop Dose Admin Sodium Chloride 1,000 mls @ 100 mls/hr 02/28/18 06:42 02/28/18 07:12 Sodium Chloride IV 02/28/18 16:41 100 mls/hr .Q10H STA Administration Lidocaine HCl 10 ml 02/28/18 06:20 02/28/18 07:12 Uro-Jet [id number] 02/28/18 06:21 10 ml ONCE STA Administration Potassium Chloride 40 meq 02/28/18 22:47 02/28/18 22:58 K-Dur PO 02/28/18 22:48 40 meq ONCE STA Administration Ziprasidone 10 mg 02/28/18 05:23 02/28/18 05:30 Geodon IM 02/28/18 05:24 10 mg ONCE STA Administration Vital Signs: Temp Pulse Resp BP Pulse Ox 02/28/18 22:38 98.4 F 60 16 119/59 L 98 02/28/18 16:00 69 18 94/54 L 94 L 02/28/18 14:45 65 12 125/79 02/28/18 12:00 70 91/57 L 94 L 02/28/18 10:30 74 98/61 93 L 02/28/18 09:00 62 108/68 02/28/18 06:30 86 14 101/62 93 L 02/28/18 04:49 98.2 F 104 H 22 124/84 98 Departure - Departure Time of Disposition: 05:34 Pt referred to PMD for follow-up: No IPMP verified?: No Disposition Discussed With: Patient <MONET SCHWARZ - Last Filed: 02/28/18 05:22> <ARLETTE DUQUE - Last Filed: 02/28/18 19:52> - Departure Time of Disposition: 08:30 Pt referred to PMD for follow-up: Yes IPMP verified?: No Disposition Discussed With: Patient, Other (mental health) <ADY-ER,ARLETTE - Last Filed: 03/01/18 08:32> - Departure Disposition: HOME SELF-CARE Discharge Problem: Problem behavior Instructions: Polysubstance Abuse (ED), Boxer Fracture (ED) Condition: Fair Additional Instructions: keep hand elevated--norco 5mg q 4hrs prn pain #10///f/u wtih pcp for ortho referral Allergies/Adverse Reactions: Allergies No Known Allergies Allergy (Verified 02/28/18 04:56) Home Medications: Ambulatory Orders Quetiapine Fumarate [Seroquel] 100 mg PO DAILY 07/01/17 Risperidone 2 mg PO DAILY 07/01/17 <MONET SCHWARZ - Last Filed: 02/28/18 05:22> <ARLETTE DUQUE - Last Filed: 02/28/18 19:52> <ARLETTE WALKER - Last Filed: 03/01/18 08:32> Additional Information: Patient remains in department. Earlier patient awakened and became agitated again, uncooperative attempting to pull out IVs stating he was leaving. [employer] called and assisted with patient and was put back in restraints. Mental health here attempting to make placement Turning care back to Dr Schwarz (ARLETTE DUQUE)
[2018-02-28] MEDS ORDERED: URO-JET MUCOUSMEMB STA (06:20)
[2018-02-28] MEDS ORDERED: SODIUM CHLORIDE 1,000 ML IV STA (06:42)
--- NOTE | 2018-02-28 09:30 | CT ---
EXAM: CT BRAIN HISTORY: Altered mental status TECHNIQUE: CT brain without intravenous contrast. 5-mm axial sections with Reformations. COMPARISON: 06/25/2017 FINDINGS: Brain is unremarkable without evidence of hemorrhage or large vessel distribution recent ischemic in farction. There is no suggestion of acute hydrocephalus or subdural fluid collection. No mass or ma ss effect. Cranium is within normal limits. Mastoid processes are aerated. The visualized paranasal sinuses a re clear. IMPRESSION: No acute intracranial process.
--- NOTE | 2018-02-28 18:39 | DI ---
EXAM: Two views of the right hand. History: Right hand trauma. Findings / impression: Mild to moderately displaced oblique fracture through the distal fifth metaca rpal shaft with adjacent soft tissue swelling. No dislocation.
[2018-02-28 22:39] VITALS: TEMP 98.4
[2018-02-28] MEDS ORDERED: K-DUR PO STA (22:47)
[2018-03-01 09:34] VITALS: BP 105/67
== END 2018-03-01 08:40 | disposition home or self-care (01) ==
LOC: ED 04:47
DX: F69 Unspecified disorder of adult personality and behavior (principal); F19.10 Other psychoactive substance abuse, uncomplicated; R41.82 Altered mental status, unspecified; S62.326A Displaced fracture of shaft of fifth metacarpal bone, right hand, initial encounter for closed fracture; F17.210 Nicotine dependence, cigarettes, uncomplicated
CPT/HCPCS: 36415; 80053; 80306; 80307; 81001; 84132; 84443; 85025; 93005; 93010; 96360; 96361; 96372; 99285